=== PATIENT | female | born 1995 | race African-American/Black ===

== ENCOUNTER 2021-09-09 15:50 | Observation (INO) | payer MEDICAID, SELFPAY ==
[2021-09-09 16:17] VITALS: BMI 46.3
--- NOTE | 2021-09-09 16:20 | OBADM ---
This patient, Geri Canales, admitted to the OB room 116 for observation for back pain. Patient/family oriented to hospital policies and general routines including ID bracelet, bed and alarms, visiting hours, pain management, procedures, bathroom and other care routines, personal items, smoking policy, room service/diet, and visiting hours. Patient/Family are encouraged to report perceived risks to care and to ask questions if they do not understand what they are told or what they should do.
[2021-09-09 16:22] VITALS: BP 118/74; PULSE 90; TEMP 36.5
[2021-09-09 16:31] VITALS: BP 112/65; PULSE 74
[2021-09-09 16:37] LABS: Appearance Urine Clear (Clear); Bilirubin Urine Negative (Negative); Blood Urine Negative (Negative); Color Urine Yellow (Yellow); Glucose Urine UA Negative (Negative); Ketones Urine Trace mg/dL (Negative); Leukocyte Esterase Ur Trace LEU/UL (Negative); Nitrate Urine Negative (Negative); Protein Urine Negative (Negative)
[2021-09-09 16:45] LABS: Bacteria Urine Trace /hpf; Mucus Urine Rare /lpf; RBC Urine 0-2 /hpf (0-2); Squamous Epithelial Cell Urine Occasional /hpf (Few); WBC Urine 0-3 /hpf
[2021-09-09 16:46] LABS: Add Urine Microscopic? YES
[2021-09-09 17:01] VITALS: BP 109/70; PULSE 94
[2021-09-09 17:31] VITALS: BP 107/54; PULSE 84
[2021-09-09 18:01] VITALS: BP 105/52; PULSE 84
--- NOTE | 2021-10-01 21:59 | PM.OBTRLD ---
OB - Triage/Final Diagnosis Visit Information Comments/Additional reasons for admission: I have assessed the risk for this patient, Geri Canales, and determined that she would benefit from observation care. Evaluation Laboratory results: Laboratory Tests 09/09/21 16:23 Urine Color Yellow Urine Appearance Clear Urine pH 7.0 Ur Specific [place] 1.020 Urine Protein Negative Urine Glucose (UA) Negative Urine Ketones Trace Ur Blood (Man) Negative Urine Nitrate Negative Urine Bilirubin Negative Urine Urobilinogen 1.0 Leukocyte Esterase Rfl Trace H Urine RBC 0-2 Urine WBC 0-3 Ur Squamous Epith Cells Occasional Urine Bacteria Trace Urine Mucus Rare Final Diagnosis (1) Abdominal pain: Code(s): R10.9 - Unspecified abdominal pain Status: Acute
== END 2021-09-09 18:20 | disposition home or self-care (01) ==
PROVIDERS: Obstetrics & Gynecology; Admitting Provider Obstetrics & Gynecology; Visit Provider Obstetrics & Gynecology
DX: O26.893 Other specified pregnancy related conditions, third trimester (principal); R10.9 Unspecified abdominal pain; Z3A.31 31 weeks gestation of pregnancy
CPT/HCPCS: 81001; G0378; G0379

== ENCOUNTER 2021-09-22 21:04 | Observation (INO) | payer OTHER, SELFPAY ==
[2021-09-22] VITALS (21 sets, daily range): BP systolic 115–135; BP diastolic 65–96; PULSE 79–94; O2SAT 97–100; BMI 46.4
[2021-09-22 22:01] LABS: Appearance Urine Clear (Clear); Bilirubin Urine 1+ (Negative); Blood Urine Negative (Negative); Color Urine Yellow (Yellow); Glucose Urine UA Negative (Negative); Ketones Urine Trace mg/dL (Negative); Leukocyte Esterase Ur Negative LEU/UL (Negative); Nitrate Urine Negative (Negative); Protein Urine 1+ mg/dL (Negative); Specific Grav Ur >= 1.030 (1.001-1.035)
[2021-09-22 22:09] LABS: Bacteria Urine Trace /hpf; Mucus Urine Few /lpf; Squamous Epithelial Cell Urine Moderate /hpf (Few); WBC Urine 0-3 /hpf
[2021-09-22 22:17] LABS: Add Urine Microscopic? YES
--- NOTE | 2021-09-26 07:27 | PM.OBTRLD ---
OB - Triage/Final Diagnosis Visit Information Date of evaluation: 09/23/21 Reason for evaluation: threatened labor Comments/Additional reasons for admission: I have assessed the risk for this patient, Geri Canales, and determined that she would benefit from observation care. Evaluation Laboratory results: Laboratory Tests 09/22/21 21:50 Urine Color Yellow Urine Appearance Clear Urine pH 6.0 Ur Specific [employer] >= 1.030 Urine Protein 1+ H Urine Glucose (UA) Negative Urine Ketones Trace Ur Blood (Man) Negative Urine Nitrate Negative Urine Bilirubin 1+ H Urine Urobilinogen 1.0 Leukocyte Esterase Rfl Negative Urine RBC 3-5 H Urine WBC 0-3 Ur Squamous Epith Cells Moderate H Urine Bacteria Trace Urine Mucus Few H
== END 2021-09-23 00:25 | disposition home or self-care (01) ==
PROVIDERS: Advanced Practice Midwife; Admitting Provider Obstetrics & Gynecology; Visit Provider Obstetrics & Gynecology
DX: O47.03 False labor before 37 completed weeks of gestation, third trimester (principal); Z3A.33 33 weeks gestation of pregnancy
CPT/HCPCS: 81001; G0378; G0379

== ENCOUNTER 2021-11-05 09:04 | Inpatient (IN) | payer OTHER, SELFPAY ==
[2021-11-05] VITALS (76 sets, daily range): BP systolic 64–145; BP diastolic 38–111; PULSE 51–188; RESP 16; TEMP 36.5–37; O2SAT 95–100; BMI 48.8
--- NOTE | 2021-11-05 10:46 | LDADM ---
This patient, Geri Canales, was admitted to Labor/Delivery/Recovery 107 on 11/05/21 at 09:04. Plans for labor, pain management and were discussed with patient. Patient/family oriented to hospital policies and general routines including ID bracelet, bed and alarms, visiting hours, pain management, procedures, bathroom and other care routines, personal items, smoking policy, room service/diet and guest tray routines, infant security routines, and visiting hours. Patient/Family are encouraged to report perceived risks to care and to ask questions if they do not understand what they are told or what they should do. See OBIX for further documentation.
[2021-11-05] MEDS: LACTATED RINGERS 1,000 ML 125 ML IV CONT ×2 (11:17→20:36)
[2021-11-05 11:34] LABS: Basophils Percent Auto 0.2 % (0.2-1.2); Eosinophils Absolute Auto 0.1 K/mm3 (0-0.3); Eosinophils Percent Auto 1.1 % (0-4.4); Hematocrit 35.8 % (37.0-47.0); Hemoglobin 10.7 g/dL (12.0-15.0); Immature Granulocyte Absolute 0.02 K/mm3 (0.00-0.031); Immature Granulocyte Percent A 0.3 % (0-0.5); Lymphocytes Absolute Auto 1.69 K/mm3 (0.9-3.2); Lymphocytes Percent Auto 25.6 % (18.3-44.2); Mean Corpuscular HGB Conc 29.9 g/dl (32-36); Mean Corpuscular Hemoglobin 26.3 pg (26-34); Mean Platelet Volume 12.4 fl (7.4-10.4); Monocytes Absolute Auto 0.6 K/mm3 (0.1-0.6); Monocytes Percent Auto 9.1 % (2.6-8.5); Neutrophils Absolute Auto 4.2 K/mm3 (1.3-6.7); Neutrophils Percent Auto 63.7 % (45.5-73.1); Platelet Count Result 189 k/mm3 (150-375); Red Blood Count 4.07 M/mm3 (4.2-5.4); Red Cell Distribution Width 21.8 % (11.5-14.5); White Blood Count 6.6 K/mm3 (4.5-10.0)
[2021-11-05] MEDS: fentaNYL CITRATE INJ (*CRX) 100 MCG/2 ML VIAL IV PUSH ×3 (13:39→20:16)
[2021-11-05] MEDS: DINOPROSTONE 10 MG VAG INSERT VAGINAL (15:00)
--- NOTE | 2021-11-05 16:52 | WPDANESEPPF ---
Anes - Initial Pre Proc Eval Procedure: Labor epidural Date/Time: 11/05/21 16:52 Surgeon: Nichol Avilez MD Pre Op Diagnosis: IOL Patient Data Age: 26 Gender: F Height: 1.6 m Weight: 125 kg Last Vital Signs Temp 36.5 C 11/05/21 11:00 Pulse 88 11/05/21 13:37 BP 136/80 11/05/21 13:37 O2 Del Method Room Air 11/05/21 10:45 Allergies Allergy/AdvReac Type Severity Reaction Status Date / Time dog dander Allergy Rash Verified 10/30/21 09:02 Home Medications Medication Instructions Recorded Confirmed Type albuterol sulfate 90 mcg/actuation 2 puff inhalation Q4H PRN 09/09/21 11/05/21 History aerosol inhaler Shortness Of Breath vit no.95-ferrous 1 tablet PO DAILY 09/09/21 11/05/21 History fumarate 28 mg-folic acid 800 mcg tablet () ferrous sulfate 325 mg (65 mg 325 mg PO DAILY 10/20/21 11/05/21 History iron) tablet Laboratory Tests 11/05/21 11/05/21 10:42 10:42 WBC 6.6 K/mm3 K/mm3 (4.5-10.0) RBC 4.07 M/mm3 L M/mm3 (4.2-5.4) Hgb 10.7 g/dL L g/dL (12.0-15.0) Hct 35.8 % L % (37.0-47.0) MCV 88.0 fl fl (80-100) MCH 26.3 pg pg (26-34) MCHC 29.9 g/dl L g/dl (32-36) RDW 21.8 % H % (11.5-14.5) Plt Count 189 k/mm3 k/mm3 (150-375) MPV 12.4 fl H fl (7.4-10.4) Immature Gran % (Auto) 0.3 % % (0-0.5) Neut % (Auto) 63.7 % % (45.5-73.1) Lymph % (Auto) 25.6 % % (18.3-44.2) [place] % (Auto) 9.1 % H % (2.6-8.5) Eos % (Auto) 1.1 % % (0-4.4) Baso % (Auto) 0.2 % % (0.2-1.2) Lymph # (Auto) 1.69 K/mm3 K/mm3 (0.9-3.2) [place] # (Auto) 0.6 K/mm3 K/mm3 (0.1-0.6) Eos # (Auto) 0.1 K/mm3 K/mm3 (0-0.3) Baso # (Auto) 0.0 K/mm3 K/mm3 (0.0-0.1) Abs Immat Gran (auto) 0.02 K/mm3 K/mm3 (0.00-0.031) Absolute Neuts (auto) 4.2 K/mm3 K/mm3 (1.3-6.7) Absolute Nucleated RBC 0.0 K/mm3 K/mm3 (0.0-0.012) Nucleated RBC % 0.0 % % (0.0-0.2) Blood Type O Positive Antibody Screen Negative Patient hx anesthesia problems: none Family hx anesthesia problems: none Results Review: All pre-operative results and documents have been reviewed as part of the pre-operative evaluation. [facility] Family History Family History Grandparent Diabetes mellitus Grandparent Hypertension Social History Social History Smoking status: Never smoker Substance use: never Spiritual care concerns: No Anes - Eval Final PreProcedure Day of Procedure 11/05/21 16:52 Heart: regular rate and rhythm Lungs: clear to auscultation and normal air movement Airway: Mallampati scale Neurological: alert and oriented Last oral intake: 2 hours ASA classification: III Emergent: no Anesthetic plan: proceed Anesthesia type and monitoring: regional epidural and standard monitoring Results Review: All pre-operative results and documents have been reviewed as part of the pre-operative evaluation. Informed Consent: The patient's anesthetic plan and its attendant risks and benefits were discussed with the patient/family/POA. Questions were solicited and answers provided to the satisfaction of the patient/family/POA.
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
--- NOTE | 2021-11-05 21:22 | WPDANESEPN ---
Anes - Epidural Procedure Note Date/Time: 11/05/21 21:22 Consent: I have discussed with the patient/family/POA, the placement of an epidural catheter and the use of epidural narcotic/local anesthetic for labor analgesia and/or postoperative pain management, including associated potential risks, benefits, complications and side effects. I have discussed alternative methods of labor analgesia and/or postoperative pain management. The patient/family/POA, understand(s) and wish(es) to proceed with epidural narcotic/local anesthetic for labor analgesia and/or postoperative pain management. Time-Out: A pre-procedural Time-Out was completed immediately before starting the procedure and confirmed: Patient Identification, Site, Procedure, Patient Position and the Availability of Requisite Equipment. Clinical Indications: Painful labor contractions Epidural Insertion Note Patient position: sitting Skin prep: chlorhexidine and sterile drape Needle: 17g Tuohy Catheter: 20g Unstyleted Technique: Loss of resistance c saline Level of insertion: L4/5 Catheter skin marlena (cm): 9 Length in epidural space (cm): 15 Skin anesthesia: lidocaine 1% Test dose: 1.5% Lidocaine with 1:[id number] Epi, negative for subarachnoid Inj and negative for intravascular Inj Time of test dose: 21:07 Observations: tolerated well Complications: none
[2021-11-05] MEDS: OXYTOCIN 30 UNITS/NS 500 ML 30 UNITS/500 ML BAG 6 UNITS IV CONT (22:00)
[2021-11-06] VITALS (120 sets, daily range): BP systolic 94–144; BP diastolic 52–107; PULSE 28–171; RESP 16–18; TEMP 36.5–37; O2SAT 87–100
[2021-11-06] MEDS: ONDANSETRON INJ 4 MG/2 ML VIAL IV PUSH (00:44)
--- NOTE | 2021-11-06 05:31 | PM.OBPRVD ---
OB - Delivery Note Procedure Delivery date: 11/06/21 Procedure: Induction method: Per Pitocin Protocol and Per Cervidil Protocol Delivery monitor: External FHT and Internal Uterine Laceration Description: Perineal - 2nd Degree Delivery repair: vicryl Quantitative Blood Loss (ml): 180 Disposition: Floor Narrative: With adequate expulsive efforts by the mother, the baby's head was delivered OA. The baby's anterior shoulder was delivered under the pubic symphysis without difficulty. The posterior shoulder and the rest of the baby delivered without difficulty. The was placed on the mothers chest and suctioned and stimulated. The cord was clamped and cut after 30 seconds. Mother and baby both stable. Baby Date of : 11/06/21 Time of : 05:07 Weeks of gestation at delivery: 39 gender: Male Weight (pounds): 7 Weight (ounces): 15 presentation: vertex Placenta delivery description: Spontaneous Cord Vessel Description: 3 Vessels, Nuchal Cord and Delayed Cord Clamping score one minute: 9 score five minutes: 9
[2021-11-06] MEDS: OXYTOCIN 30 UNITS/NS 500 ML 30 UNITS/500 ML BAG 125 UNITS IV CONT (05:51)
[2021-11-06] MEDS: BENZOCAINE 20% AER SPR (*SP) 56 GM CAN 1 SPRAY TOPICAL (08:03)
[2021-11-06] MEDS: WITCH HAZEL 40 PADS 1 PAD TOPICAL (08:03)
[2021-11-06] MEDS: IBUPROFEN 600 MG TABLET PO ×3 (08:22→19:27)
--- NOTE | 2021-11-06 08:52 | PC.NURSE ---
Patient transferred to post room #288 via wheel chair. Support person present. Oriented to unit, room, information board, rooming in, admission packet and security measures. Patient verbalizes understanding.
[2021-11-06 12:09] LABS: Rapid Plasma Reagin Non-Reactive (NonReactive)
--- NOTE | 2021-11-06 12:55 | PC.NURSE ---
[id number] Introductions were made, then consulted with patient to assess needs related to . Mother led the conversation with her?plans to feed?her infant and the?experience so far. Resources provided for inpatient and outpatient services using a resource guide and mom/baby guide. Mother voiced understanding of information, infant is swaddled in the bassinet and mother believes is sleeping. Mother states it is time to feed infant as it has been about 3 hours from the start of the last and requested assistance. RN demonstrated unwrapping and placing skin to skin. Infant demonstrates feeding cues and RN assist mother with latching as mother is not moving much related to perineal pain. Infant doesn't latch and is placed skin to skin after a 10 min attempt. Mother voiced understanding to call when infant starts squirming and seeking the breast. Reported to primary RN. Primary RN reported that she assisted to the breast with the help of father of the baby using the sandwich hold.
[2021-11-06] MEDS: ACETAMINOPHEN 325 MG TABLET 650 MG PO (18:14)
[2021-11-07] VITALS: BP 121/71; PULSE 84; RESP 18; TEMP 36.5
[2021-11-07] MEDS: ACETAMINOPHEN 325 MG TABLET 650 MG PO (02:27)
[2021-11-07] MEDS: IBUPROFEN 600 MG TABLET PO ×3 (02:28→17:57)
[2021-11-07 04:00] VITALS: BP 119/54; PULSE 90; RESP 18; TEMP 36.6
[2021-11-07 05:25] LABS: Hemoglobin 8.9 g/dL (12.0-15.0)
--- NOTE | 2021-11-07 08:09 | P.PNOB_ITS ---
OB - PN: Subj Subjective Date/time seen: 11/07/21 08:09 Patient comments: no complaints and pain well controlled baby status: doing well [place] feeding status: breast and bottle feeding OB - PN: Obj Data Labs CBC & Chem 7: 11/07/21 04:06 Labs: Laboratory Results - last 24 hr 11/05/21 11/07/21 10:42 04:06 Hgb 8.9 L Hct 30.0 L RPR Non-reactive OB - PN A/P Plan day: 1 Plan: routine care and discharge home Comments: circ done after consented Time Spent With Patient Time: Total time spent is greater than 50% in coordination of care (as documented) at patient's floor/unit and/or counseling patient: Time with patient: less than 15 minutes Exam Narrative: NAD abdomen soft, nontender, fundus firm below the umbilicus Extremities nontender, 1+ edema
--- NOTE | 2021-11-07 08:12 | PM.DS ---
DS: Admitting Diagnosis Discharge Date 11/07/21 Admitting Diagnosis term IUP DS: Discharge Diagnosis Discharge Diagnosis (1) , delivered: Code(s): O80 - Encounter for full-term uncomplicated delivery Status: Acute DS: Summary Hospital Course Hospital Course: Geri was admitted for induction of labor. She proceeded to have an uncomplcated vaginal delivery and course. She was discharged home on day 1. Time Spent with Patient Time attestation: Total time spent providing and/or coordinating discharge services: Exam Narrative: NAD abdomen soft, appropriately tender Ext non tender, 1+ edema DS: Data Data Completed and Pending Labs on day of discharge: Labs from last 24 hours 11/07/21 11/05/21 04:06 10:42 Hgb 8.9 L Hct 30.0 L RPR Non-reactive Discharge Plan Discharge Attending physician on discharge: Nichol Avilez Discharging Clinician: Nichol Avilez Anticipated Discharge Date/Time: 11/07/21 08:11 Activity: pelvic rest Diet: regular Patient Instructions: Antibiotic Form Stand Alone Forms: General Discharge Information Follow-up/Referrals: Nichol Avilez MD [Physician] - 4 Weeks Discharge Medications: Continued albuterol sulfate 90 mcg/actuation HFA aerosol inhaler 2 puff INHALATION Q4H PRN (Reason: Shortness Of Breath) PNV cmb#95-ferrous fumarate-FA [] 28 mg iron- 800 mcg tablet 1 tablet PO DAILY ferrous sulfate 325 mg (65 mg iron) Tablet 325 mg PO DAILY Rx Instructions: Pt is unsure of strength Date of admission: 11/05/21 09:04 Primary Care Provider: PHYSICIAN NOT ON STAFF,NONSTAFF Admitting Provider: Nichol Avilez Attending physician on admission: Nichol Avilez Condition: Stable
--- NOTE | 2021-11-07 08:51 | WPDANLDPN2 ---
Anes-Prog Note L&D Date/Time: 11/07/21 08:51 Comfortable throughout: labor and delivery Neuraxial method: epidural Epidural/Spinal procedure site: clean & non-tender Neuro status: Neuro function grossly intact. Cardiovascular status: normal Respiratory status: normal Airway patency: baseline Mental status: baseline Post-Op hydration status: normal Vital Signs: Last Vital Signs Temp 36.6 C 11/07/21 04:00 Pulse 90 11/07/21 04:00 Resp 18 11/07/21 04:00 BP 119/54 L 11/07/21 04:00 Pulse Ox 99 11/06/21 11:35 O2 Del Method Room Air 11/07/21 04:00 Pain score (VAS): 2 I/O: Intake & Output 11/06/21 11/07/21 11/07/21 23:59 07:59 15:59 Intake Total 240 Balance 240 Patient feedback: Patient satisfied with anesthetic care.
[2021-11-07 09:05] VITALS: BP 117/72; PULSE 82; RESP 20; TEMP 36.7; O2SAT 99
[2021-11-07] MEDS: MULTIVIT/MIN/PREN/FOL AC/IRON TABLET 1 TAB PO (09:05)
[2021-11-07] MEDS: POLYSACCHARIDE IRON COMPLEX 150 MG CAPSULE PO ×2 (09:05→17:56)
[2021-11-07] MEDS: DOCUSATE SODIUM 100 MG CAPSULE PO ×2 (09:05→17:57)
[2021-11-09 11:46] VITALS: BP 121/68; PULSE 80; RESP 18; TEMP 36.8; O2SAT 100
== END 2021-11-07 18:40 | disposition home or self-care (01) | DRG 560 ==
LOC: ANHLDR 09:09 → ANHOB2 11-06 08:56
PROVIDERS: Admitting Provider Obstetrics & Gynecology; Visit Provider Obstetrics & Gynecology
DX: O99.02 Anemia complicating childbirth (principal); O69.81X0 Labor and delivery complicated by cord around neck, without compression, not applicable or unspecified; O70.1 Second degree perineal laceration during delivery; O76 Abnormality in fetal heart rate and rhythm complicating labor and delivery; Z3A.39 39 weeks gestation of pregnancy; Z37.0 Single live birth; Z62.810 Personal history of physical and sexual abuse in childhood
CPT/HCPCS: 36415; 84112; 85014; 85018; 85025; 86592; 86850; 86900; 86901; A9270; J2405; J2590; J2795; J3010; J7120

== ENCOUNTER 2021-11-12 01:25 | Emergency (ER) | payer OTHER, SELFPAY ==
[2021-11-12] VITALS (14 sets, daily range): BP systolic 109–140; BP diastolic 57–99; PULSE 85–121; RESP 16–28; TEMP 37.3–37.6; O2SAT 93–98
--- NOTE | 2021-11-12 01:36 | ECG_ITS ---
Measurements Intervals [place] Rate: 112 P: 52 MN: 120 QRS: 51 QRSD: 78 T: 31 QT: 315 QTc: 431 Interpretive Statements SINUS TACHYCARDIA OTHERWISE NORMAL ECG NO PREVIOUS ECG AVAILABLE FOR COMPARISON Electronically Signed On 11-12-2021 16:56:22 CDT by Lucius Carlson M.D.
[2021-11-12 01:48] LABS: Basophils Percent Auto 0.1 % (0.2-1.2); Eosinophils Percent Auto 0.3 % (0-4.4); Hematocrit 30.7 % (37.0-47.0); Hemoglobin 9.6 g/dL (12.0-15.0); Immature Granulocyte Absolute 0.02 K/mm3 (0.00-0.031); Immature Granulocyte Percent A 0.3 % (0-0.5); Lymphocytes Absolute Auto 1.42 K/mm3 (0.9-3.2); Lymphocytes Percent Auto 17.9 % (18.3-44.2); Mean Corpuscular HGB Conc 31.3 g/dl (32-36); Mean Corpuscular Hemoglobin 26.7 pg (26-34); Mean Corpuscular Volume 85.5 fl (80-100); Mean Platelet Volume 11.4 fl (7.4-10.4); Monocytes Absolute Auto 0.8 K/mm3 (0.1-0.6); Monocytes Percent Auto 10.6 % (2.6-8.5); Neutrophils Absolute Auto 5.6 K/mm3 (1.3-6.7); Neutrophils Percent Auto 70.8 % (45.5-73.1); Platelet Count Result 185 k/mm3 (150-375); Red Blood Count 3.59 M/mm3 (4.2-5.4); Red Cell Distribution Width 21.3 % (11.5-14.5); White Blood Count 7.9 K/mm3 (4.5-10.0)
[2021-11-12 02:03] LABS: Alanine Aminotransferase 12 U/L (6-35); Albumin Level 3.2 g/dL (3.5-5.1); Alkaline Phosphatase 110 U/L (38-126); Anion Gap 11 mmol/L (8-16); Aspartate Amino Transferase 28 U/L (14-36); Bilirubin,Total 0.6 mg/dL (0.2-1.3); Blood Urea Nitrogen 10 mg/dL (7-17); Calcium 8.2 mg/dL (8.4-10.2); Carbon Dioxide 19 mmol/L (22-30); Chloride 107 mmol/L (98-107); Estimated CRCL calculation 133 ml/min; Estimated Glomerular Filt Rate > 60; Glucose 128 mg/dL (65-110); Potassium 3.6 mmol/L (3.4-5.0); Sodium 137 mmol/L (137-145)
--- NOTE | 2021-11-12 02:13 | ED.GENADULT ---
HPI - General Adult General Chief complaint: Syncope Stated complaint: syncope Time Seen by Provider: 11/12/21 01:49 History of Present Illness HPI narrative: Patient is a 26-year-old female who presents the emergency department with chief complaint of syncope. Patient reports has been having chills and body aches since yesterday patient reports that she is 5 days and reports that her lochia has slowed down reports that she just started being able to urinate without difficulty the patient reports that yesterday she started having chills and then today she was having almost rigors and then had an episode where she became what the family thought was sleeping but then now the patient states that actually she was passed out because she was laying on the couch. Patient then reported that she had some bleeding from her nose patient reports no cough no shortness of breath no chest pain reports no abdominal pain other than feeling a little bit of cramping sensation Related Data Home Medications Medication Instructions Recorded Confirmed albuterol sulfate 90 mcg/actuation 2 puff inhalation Q4H PRN 09/09/21 11/05/21 aerosol inhaler Shortness Of Breath vit no.95-ferrous 1 tablet PO DAILY 09/09/21 11/05/21 fumarate 28 mg-folic acid 800 mcg tablet () ferrous sulfate 325 mg (65 mg 325 mg PO DAILY 10/20/21 11/05/21 iron) tablet Allergies Allergy/AdvReac Type Severity Reaction Status Date / Time dog dander Allergy Rash Verified 11/12/21 01:41 Review of Systems Review of Systems: A 10 system review of systems was completed on the patient and is negative except for what is stated in the HPI. Nursing and ancillary documentation was reviewed. [facility] Family History Family History Grandparent Diabetes mellitus Grandparent Hypertension Social History Social History Smoking status: Never smoker Substance use: never Spiritual care concerns: No Exam Narrative: GENERAL: Well-appearing, well-nourished, and in no acute distress. HEAD: Normocephalic, atraumatic. EYES: PERRLA and EOMI. ENT: Nares clear, no rhinorrhea or epistaxis. Mucous membranes moist. NECK: Supple. CHEST: Clear to auscultation. No respiratory distress. HEART: Regular rate and rhythm. No murmur heard. Normal peripheral pulses. ABDOMEN: Soft, nontender, nondistended, normal active bowel sounds. EXTREMITIES: Normal range of motion. No edema. SKIN: Warm, dry, no rash. NEURO: No focal deficits. Alert and oriented x3. PSYCH: Normal mood and affect. Course Course Emergency Course: EKG is sinus tachycardia rate of [address] elevation or ST depression QRS is 78 ms and QT is 315 QTC is 381 Vital Signs Vital signs: Vital Signs Temperature 37.6 C H 11/12/21 01:36 Pulse Rate 114 H 11/12/21 01:36 Respiratory Rate 18 11/12/21 01:36 Blood Pressure 140/80 11/12/21 01:36 Pulse Oximetry 98 11/12/21 01:36 Oxygen Delivery Room Air 11/12/21 01:36 Temperature 37.3 C 11/12/21 03:22 Pulse Rate 101 H 11/12/21 03:22 Respiratory Rate 20 11/12/21 03:22 Blood Pressure 118/58 L 11/12/21 03:22 Pulse Oximetry 98 11/12/21 03:22 Oxygen Delivery Room Air 11/12/21 01:36 Medical Decision Making Vital Signs Vital Signs: Vital Signs Temperature 37.6 C H 11/12/21 01:36 Pulse Rate 114 H 11/12/21 01:36 Respiratory Rate 18 11/12/21 01:36 Blood Pressure 140/80 11/12/21 01:36 Pulse Oximetry 98 11/12/21 01:36 Oxygen Delivery Room Air 11/12/21 01:36 Temperature 37.3 C 11/12/21 03:22 Pulse Rate 101 H 11/12/21 03:22 Respiratory Rate 20 11/12/21 03:22 Blood Pressure 118/58 L 11/12/21 03:22 Pulse Oximetry 98 11/12/21 03:22 Oxygen Delivery Room Air 11/12/21 01:36 Lab Data Result diagrams: 11/12/21 01:43 11/12/21 01:43
[2021-11-12] MEDS: SODIUM CHLORIDE 0.9% IV 1,000 ML 999 ML IV CONT (02:21)
[2021-11-12 02:22] LABS: Magnesium 1.9 mg/dL (1.6-2.3)
[2021-11-12 02:32] LABS: Appearance Urine Cloudy (Clear); Bilirubin Urine Negative (Negative); Blood Urine 3+ (Negative); Color Urine Yellow (Yellow); Glucose Urine UA Negative (Negative); Ketones Urine 2+ mg/dL (Negative); Leukocyte Esterase Ur 3+ LEU/UL (Negative); Nitrate Urine Positive (Negative); Protein Urine 2+ mg/dL (Negative); Specific Grav Ur 1.015 (1.001-1.035)
[2021-11-12 02:37] LABS: Mucus Urine Rare /lpf; Squamous Epithelial Cell Urine Few /hpf (Few); WBC Urine >75 /hpf
[2021-11-12 02:39] LABS: Add Urine Microscopic? YES
[2021-11-12 02:50] LABS: Influenza A QL RT-PCR Negative (Negative); Influenza B QL RT-PCR Negative (Negative); SARS-CoV-2 RNA PCR Negative
[2021-11-12 02:52] LABS: Lactic Acid Reflex < 0.5 mmol/L (0.7-2.0)
== END 2021-11-12 04:59 | disposition home or self-care (01) ==
PROVIDERS: Emergency Provider Emergency Medicine
DX: R55 Syncope and collapse (principal); N30.00 Acute cystitis without hematuria; Z20.822 Contact with and (suspected) exposure to COVID-19
CPT/HCPCS: 36415; 80053; 81001; 83605; 83735; 85025; 87077; 87086; 87088; 87186; 87502; 93005; 96361; 96365; 96367; 99284; C9803; J0131; J0696; J7030; U0003; U0005

== ENCOUNTER 2021-12-14 00:08 | Emergency (ER) | payer OTHER, SELFPAY ==
--- NOTE | ~2021-12-14 | XR_ITS ---
EXAMINATION: XR chest 2V 12/14/2021 02:07 INDICATION: Persistent cough PROCEDURE: 2 view chest COMPARISON: No prior studies for comparison. FINDINGS: The lungs are clear. The cardiomediastinal silhouette is within normal limits. There are no pleural effusions. There is no pneumothorax suspected. There is scoliosis. IMPRESSION: 1: NO ACUTE CARDIOPULMONARY DISEASE. Reviewed, dictated and finalized at location B.
[2021-12-14 00:14] VITALS: BP 144/101; PULSE 116; RESP 18; TEMP 36.3; O2SAT 99
--- NOTE | 2021-12-14 01:11 | ED.URI ---
HPI - URI/Sore Throat General Chief Complaint: Upper Respiratory Infection Stated Complaint: Sore Throat Time Seen by Provider: 12/14/21 00:53 History of Present Illness HPI Narrative: Patient is a 26-year-old female with a history of asthma here for evaluation of sore throat, productive cough, and bilateral ear fullness and pain for the past 3 days. Patient's at home has similar symptoms. She has taken two negative COVID tests at home. She has attempted Tylenol without significant relief of her pain. No trismus. Patient is tolerating her secretions. She denies any fevers, chills, chest pain, shortness of breath, leg swelling, abdominal pain, nausea or vomiting. Related Data Home Medications Medication Instructions Recorded Confirmed albuterol sulfate 90 mcg/actuation 2 puff inhalation Q4H PRN 09/09/21 11/05/21 aerosol inhaler Shortness Of Breath vit no.95-ferrous 1 tablet PO DAILY 09/09/21 11/05/21 fumarate 28 mg-folic acid 800 mcg tablet () ferrous sulfate 325 mg (65 mg 325 mg PO DAILY 10/20/21 11/05/21 iron) tablet Allergies Allergy/AdvReac Type Severity Reaction Status Date / Time dog dander Allergy Rash Verified 12/14/21 00:14 Review of Systems Review of Systems: Gen: Denies fevers or chills Eyes: Denies eye pain or visual change ENT: Reports sore throat Respiratory: Reports cough. Denies shortness of breath CV: Denies chest pain or palpitations GI: Denies abdominal pain nausea, emesis or diarrhea : denies burning, urgency, frequency or hematuria Musculoskeletal: Denies back pain or muscle pain Neuro: Denies numbness, tingling, weakness or focal weakness Skin: Denies rash Except as documented, all other systems reviewed and negative PMFSH Family History Family History Grandparent Diabetes mellitus Grandparent Hypertension Social History Social History Smoking status: Never smoker Substance use: never Spiritual care concerns: No Exam Narrative: APPEARANCE: Well appearing, no pain in distress, well-nourished. Head: Normocephalic and atraumatic. EYES: PERRLA/EOMI, conjunctivae clear NOSE: No nasal drainage EARS: Bilateral TMs are injected, right over left. Right TM is bulging. No mastoid tenderness. External ear normal in appearance THROAT: No exudates noted. Oropharynx is clear. Mucous membranes are moist. NECK: Supple. No adenopathy, no masses. RESPIRATORY: Airway patent, respirations nonlabored. Clear to auscultation bilaterally, no rales, rhonchi, wheezing. CARDIOVASCULAR: Regular rate and rhythm without murmurs, rubs, or gallops. ABDOMINAL: Normoactive bowel sounds. Soft, nontender, nondistended. No rebound tenderness or guarding. MUSCULOSKELETAL: Extremities are warm and well-perfused. Moves all extremities well. No edema. NEURO: Normal speech. No focal neurologic deficits. SKIN: Skin is warm and dry. No rashes. PSYCHIATRIC: Normal affect/mood. Course Vital Signs Vital signs: Vital Signs Temperature 97.3 F L 12/14/21 00:14 Pulse Rate 116 H 12/14/21 00:14 Respiratory Rate 18 12/14/21 00:14 Blood Pressure 144/101 H 12/14/21 00:14 Pulse Oximetry 99 12/14/21 00:14 Oxygen Delivery Room Air 12/14/21 00:14 Temperature 98.4 F 12/14/21 02:12 Pulse Rate 105 H 12/14/21 02:12 Respiratory Rate 16 12/14/21 02:12 Blood Pressure 132/88 12/14/21 02:12 Pulse Oximetry 98 12/14/21 02:12 Oxygen Delivery Room Air 12/14/21 00:14 MDM - URI/Sore Throat MDM Narrative Medical decision making narrative: 26-year-old female here for evaluation right upper respiratory infection symptoms for the past 3 days. Home COVID tests x2 have been negative. Heart and lungs clear to auscultation aside from tachycardia, and patient's bilateral TMs appear infected with injection and bulging. Strep test negativ
[2021-12-14] MEDS: BENZONATATE 100 MG CAPSULE PO (01:38)
[2021-12-14] MEDS: AMOXICILLIN/CLAVULANATE K 875-125 MG TAB 1 TABLET PO (02:04)
[2021-12-14 02:12] VITALS: BP 132/88; PULSE 105; RESP 16; TEMP 36.9; O2SAT 98
== END 2021-12-14 02:13 | disposition home or self-care (01) ==
PROVIDERS: Emergency Provider Emergency Medicine
DX: H66.93 Otitis media, unspecified, bilateral (principal); Z79.51 Long term (current) use of inhaled steroids
CPT/HCPCS: 71046; 87880; 99283; A9270

== ENCOUNTER 2021-12-16 16:17 | Emergency (ER) | payer OTHER, SELFPAY ==
[2021-12-16 16:26] VITALS: BP 139/88; PULSE 109; RESP 19; TEMP 36.9; O2SAT 98
--- NOTE | 2021-12-16 16:33 | ED.URI ---
HPI - URI/Sore Throat General Chief Complaint: Upper Respiratory Infection Stated Complaint: upper resp, ear Time Seen by Provider: 12/16/21 16:37 History of Present Illness HPI Narrative: 26-year-old female presents the emergency room with unresolved right ear pain. Patient was seen here several days ago and was diagnosed with a probable ear infection. Patient was also experiencing postnasal drip sinus congestion and a productive cough. States that other individuals in her home are having similar symptoms. Patient states the sinus congestion and cough have resolved, but she still continues to experience postnasal drip. Patient is currently breast-feeding. Related Data Home Medications Medication Instructions Recorded Confirmed albuterol sulfate 90 mcg/actuation 2 puff inhalation Q4H PRN 09/09/21 11/05/21 aerosol inhaler Shortness Of Breath vit no.95-ferrous 1 tablet PO DAILY 09/09/21 11/05/21 fumarate 28 mg-folic acid 800 mcg tablet () ferrous sulfate 325 mg (65 mg 325 mg PO DAILY 10/20/21 11/05/21 iron) tablet Allergies Allergy/AdvReac Type Severity Reaction Status Date / Time dog dander Allergy Rash Verified 12/14/21 00:14 Review of Systems Review of Systems: CONSTITUTIONAL: Denies fever, chills, or sweats. EYES: Denies visual changes, redness, or discharge. ENT: Reports rhinorrhea, congestion, sore throat, and right otalgia. CARDIOVASCULAR: Denies chest pain, palpitations, or edema. RESPIRATORY: Denies cough or dyspnea. GASTROINTESTINAL: Denies abdominal pain, nausea, vomiting, or diarrhea. GENITOURINARY: Denies dysuria or hematuria. SKIN: Denies rash or itching. MUSCULOSKELETAL: Denies back pain, joint pain, or myalgia. NEUROLOGIC: Denies headache, numbness, dizziness, or weakness. PSYCHIATRIC: Denies anxiety or depression. [facility] Family History Family History Grandparent Diabetes mellitus Grandparent Hypertension Social History Social History Smoking status: Never smoker Substance use: never Spiritual care concerns: No Exam Narrative: GENERAL: Well-appearing, well-nourished, no physical limitations, and in no acute distress. HEAD: Normocephalic, atraumatic. EYES: Conjunctivae normal, PERRLA and EOMI. ENT: External nose normal, Nares clear, no rhinorrhea or epistaxis. Mucous membranes moist. Oropharynx without tonsillar hypertrophy exudate or other lesions. External ears normal, clear effusion to bilateral TMs. Mild amount of cerumen present NECK: Supple. No adenopathy or masses. CHEST: Clear to auscultation. No respiratory distress. No wheezes rales or rhonchi. HEART: Regular rate and rhythm. No murmur heard. Normal peripheral pulses. EXTREMITIES: Normal range of motion. No edema. No clubbing or cyanosis SKIN: Warm, dry, no rash. No noted wounds NEURO: No focal deficits. Alert and oriented x3. MAEW. CN's II-XI intact bilaterally, normal gait PSYCH: Cooperative. Normal mood and affect. Course Vital Signs Vital signs: Vital Signs Temperature 36.9 C 12/16/21 16:26 Pulse Rate 109 H 12/16/21 16:26 Respiratory Rate 19 12/16/21 16:26 Blood Pressure 139/88 12/16/21 16:26 Pulse Oximetry 98 12/16/21 16:26 Oxygen Delivery Room Air 12/16/21 16:26 Temperature 36.9 C 12/16/21 16:26 Pulse Rate 109 H 12/16/21 16:26 Respiratory Rate 19 12/16/21 16:26 Blood Pressure 139/88 12/16/21 16:26 Pulse Oximetry 98 12/16/21 16:26 Oxygen Delivery Room Air 12/16/21 16:26 Discharge Plan Discharge Clinical Impression: Upper respiratory infection, Ear pain, right, Acute serous otitis media of right ear Patient Disposition: Home, Self-Care Condition: Stable Instructions: Antibiotic Form, Earache (ED), Cold Symptoms (ED) Additional Instructions: Recommend Flonase and allergy medication for your symptoms. Continue millie
== END 2021-12-16 17:29 | disposition home or self-care (01) ==
LOC: ANHED 16:42
PROVIDERS: Emergency Provider Nurse Practitioner Family
DX: J06.9 Acute upper respiratory infection, unspecified (principal); H65.01 Acute serous otitis media, right ear
CPT/HCPCS: 99281

== ENCOUNTER 2021-12-27 19:50 | Emergency (ER) | payer OTHER, SELFPAY ==
[2021-12-27 20:02] VITALS: BP 144/84; PULSE 87; RESP 16; TEMP 36.3; O2SAT 98
--- NOTE | 2021-12-27 21:32 | ED.GENADULT ---
HPI - General Adult General Chief complaint: Dental/Oral Stated complaint: been here multiple x for ear pressure,sore throat Time Seen by Provider: 12/27/21 21:09 History of Present Illness HPI narrative: Patient is a 26-year-old female who presents ER with sore throat. This patient's third visit to the ER for sore throat in the last 13 days. Recently diagnosed with otitis media and then viral otitis. Patient has no pressure in the ears. She has no increase in sinus congestion. She does have productive cough and her sore throat gets worse when she lays backwards. No chest pain or chest pressure. No fevers or chills or sweats. Has tried cough drops and lozenges without improvement. Related Data Home Medications Medication Instructions Recorded Confirmed albuterol sulfate 90 mcg/actuation 2 puff inhalation Q4H PRN 09/09/21 11/05/21 aerosol inhaler Shortness Of Breath vit no.95-ferrous 1 tablet PO DAILY 09/09/21 11/05/21 fumarate 28 mg-folic acid 800 mcg tablet () ferrous sulfate 325 mg (65 mg 325 mg PO DAILY 10/20/21 11/05/21 iron) tablet Allergies Allergy/AdvReac Type Severity Reaction Status Date / Time dog dander Allergy Rash Verified 12/14/21 00:14 Review of Systems Constitutional: Constitutional: Denies chills, Denies fatigue and Denies fever(s) ENT: Denies nasal congestion and Reports sore throat Cardiovascular: Cardiovascular: Denies chest pain, Denies rapid heart rate and Denies radiating jaw, neck or arm pain Respiratory: Respiratory: Reports cough, Denies dyspnea and Denies wheezing PMFSH Family History Family History Grandparent Diabetes mellitus Grandparent Hypertension Social History Social History Smoking status: Never smoker Substance use: never Spiritual care concerns: No Exam Narrative: GENERAL: Well-appearing, well-nourished, and in no acute distress. HEAD: Normocephalic, atraumatic. ENT: Mucous membranes moist. Normal-appearing posterior oropharynx. With midline uvula that is nonedematous. No tonsillar hypertrophy. TMs normal bilaterally. NECK: Supple. CHEST: Clear to auscultation. No respiratory distress. HEART: Regular rate and rhythm. Normal peripheral pulses. NEURO: Alert and oriented x3. PSYCH: Normal mood and affect. Course Course Emergency Course: Viral syndrome versus seasonal allergies causing postnasal drip. Patient is either at the end of her viral illness or is having persistent symptoms related to the weather and current harvest. Will place on Zyrtec and recommend using a humidifier in her room. Recommend she get a primary care doctor in follow-up. Vital Signs Vital signs: Vital Signs Temperature 97.3 F L 12/27/21 20:02 Pulse Rate 87 12/27/21 20:02 Respiratory Rate 16 12/27/21 20:02 Blood Pressure 144/84 H 12/27/21 20:02 Pulse Oximetry 98 12/27/21 20:02 Oxygen Delivery Room Air 12/27/21 20:02 Temperature 97.3 F L 12/27/21 20:02 Pulse Rate 87 12/27/21 20:02 Respiratory Rate 16 12/27/21 20:02 Blood Pressure 144/84 H 12/27/21 20:02 Pulse Oximetry 98 12/27/21 20:02 Oxygen Delivery Room Air 12/27/21 20:02 Medical Decision Making Vital Signs Vital Signs: Vital Signs Temperature 97.3 F L 12/27/21 20:02 Pulse Rate 87 12/27/21 20:02 Respiratory Rate 16 12/27/21 20:02 Blood Pressure 144/84 H 12/27/21 20:02 Pulse Oximetry 98 12/27/21 20:02 Oxygen Delivery Room Air 12/27/21 20:02 Temperature 97.3 F L 12/27/21 20:02 Pulse Rate 87 12/27/21 20:02 Respiratory Rate 16 12/27/21 20:02 Blood Pressure 144/84 H 12/27/21 20:02 Pulse Oximetry 98 12/27/21 20:02 Oxygen Delivery Room Air 12/27/21 20:02 Discharge Plan Discharge Clinical Impression: Post-nasal drip Patient Disposition: Home, Self-Care Condition: Stable Instructi
== END 2021-12-27 21:50 | disposition home or self-care (01) ==
PROVIDERS: Emergency Provider Emergency Medicine
DX: R09.82 Postnasal drip (principal)
CPT/HCPCS: 99283